=== PATIENT | female | born 1945 | race Caucasian/White ===

== ENCOUNTER → 2017-02-21 | Day surgery (SDC) | payer MEDICARE ==
[2017-02-16 14:41] VITALS: Ht 157.5 cm; Wt 59.1 kg
[~2017-02-21] VITALS: Ht 157.5 cm; Wt 59.1 kg
[~2017-02-21] MED LIST: ALBU1AER9 INH; ATROPINE SULFATE 0.1 MG/ML 5ML SYR IV PRN; ATROPINE SULFATE 1% OP SOLN 2 ML BTL ONE; BRIMONIDINE TART 0.2% OP SOLN PER DROP CHARGE ONE; CETI10TA84 PO; CHOL2000 PO; CLOP1TAB5 PO; DILT-113 PO; DVN80 PO; EpHEDrine SULFATE INJ 50 MG/ML AMP IV PRN; EpINEphrine INJ 1MG/ML AMP 1 MG/ML AMP ONE; LACTATED RINGER'S 1000ML 500 ML IV ONE; LIDOCAINE 3.5% OPH GEL PER APPLICATION CHARGE OPR SCH; LIDOCAINE 4% OP SOLN DROP CHARGE ONE; LIDOCAINE 4% OP SOLN DROP CHARGE OPR SCH; LIDOCAINE HCL 1% MPF 2 ML VIAL ONE; MIDAZOLAM HCL 1 MG/ML 2ML VIAL ONE; MOXIFLOXACIN OPH SOLN PER DROP CHARGE ONE; POVIDONE-IODINE OP SOLN 30 ML BTL ONE; PREMARIN PO; PROPARACAINE 0.5% OP SOLN PER DROP CHARGE OPR SCH; TIOT1AER INH; TOBRAMYCIN/DEXAMETHASONE OPH OINT PER APPLN CHARGE ONE
[2017-02-21] MEDS: MOXIFLOXACIN OPH SOLN PER DROP CHARGE OPR SCH ×3 (11:37→12:05)
--- NOTE | 2017-02-21 11:53 | History & Physical Bridge - [place] ---
H&P Re-Evaluation Bridge Note: I have examined the patient, reviewed the History & Physical and in the interval since the performance of the History & Physical I have noted the following changes of clinical significance: No changes noted
--- NOTE | 2017-02-21 12:47 | Discharge Instructions-SurgCtr ---
Discharge Instructions Date of Service Feb 21, 2017. 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 Post Anesthesia Instructions: If you have had General Anesthesia or IV Sedation: * Do not drive today. * Resume driving when surgeon permits. * Do not make important decisions or sign legal documents today. * Call surgeon for: 1. Temperature elevations greater than 101 degrees F. 2. Uncontrollable pain. 3. Excessive bleeding. 4. Persistent nausea and vomiting. 5. Medication intolerance (nausea, vomiting or rash). * For nausea and vomiting use only clear liquids such as: tea, soda, bouillon until nausea subsides, then gradually increase diet as tolerated. * If you have any concerns or questions, call your surgeon's office. If physician is unavailable and it is an emergency, call 911 or go to the nearest emergency room. . Instructions / Follow-Up Instructions / Follow-Up ACTIVITY RECOMMENDATIONS: * Light activities * You may walk outside, read, watch television. * Mild irritation and blurred vision are common for the first few days, redness around the white part of the eye is common. MEDICATIONS: Resume previous medications unless instructed otherwise by your surgeon. Eye drops (today and tomorrow): Gatifloxacin - one drop in operative eye every 2 hours while awake Prednisolone 1% - one drop in operative eye every 2 hours while awake SPECIAL CARE INSTRUCTIONS: * If any problems or concerns, please call Dr. Jaime's office at . FOLLOW UP VISIT: Follow-up with Dr. Jaime in the [place] office as scheduled. If not already scheduled, please call the office at . Diet Recommendations Home Diet: resume previous diet Procedures Procedures Performed: Right Eye Lamellar Keratectomy Pending Studies Studies pending at discharge: no Medical Emergencies . Who to Call and When: Medical Emergencies: If at any time you feel your situation is an emergency, please call 911 immediately. . Non-Emergent Contact Non-Emergency issues call your: Hand Nailer . . "Provider Documentation" section prepared by Gavin Jaime. .
--- NOTE | 2017-02-21 12:48 | [facility] Post Operative Brief Note ---
Immediate Operative Summary Operative Date Feb 21, 2017. 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 Jaime Political Research Scientist Surgeon(s) None Estimated Blood Loss 0 Findings elisa's nodular degeneration right eye Specimens 0 Complication(s) None Disposition Recovery Room / PACU
[2017-02-21 12:50] VITALS: TEMP 36.5
--- NOTE | 2017-02-21 13:01 | Anesthesia Progress Nt - [facility] ---
Anesthesia Post Op Note Date & Time Feb 21, 2017 at 13:01 Vital Signs Pain Intensity: 0 Vital Signs Past 12 Hours Date Time Temp Pulse Resp B/P (MAP) Pulse Ox O2 Delivery O2 Flow Rate FiO2 02/21/17 12:50 36.5 60 16 128/75 (92) 96 Room Air 02/21/17 11:25 36.8 57 16 145/67 (93) 96 Room Air Notes Mental Status: alert / awake / arousable, participated in evaluation Pt Amnestic to Procedure: Yes Nausea / Vomiting: adequately controlled Pain: adequately controlled Airway Patency, RR, SpO2: stable & adequate BP & HR: stable & adequate Hydration State: stable & adequate Anesthetic Complications: no major complications apparent
[2017-02-21 13:05] VITALS: BP 123/67; PULSE 62; O2SAT 94
--- NOTE | 2017-02-21 19:04 | OPERATIVE REPORT ---
DATE OF OPERATION: 02/21/2017 PREOPERATIVE DIAGNOSIS: Salzmann's nodular degeneration, right eye. POSTOPERATIVE DIAGNOSIS: Same. PROCEDURE PERFORMED: Lamellar keratectomy, right eye. COMPLICATIONS: None. ESTIMATED BLOOD LOSS: None. ANESTHESIA: Local with sedation. DESCRIPTION OF PROCEDURE: After informed consent was obtained in the holding area, the patient was taken back to the operating room where cardiac monitoring leads and oxygen by nasal cannula was administered by anesthesia. Gentle IV sedation was given and the patient's right eye was prepped and draped in the usual sterile fashion. A wire lid speculum was placed in the right eye and the operating microscope swung into position. Using 0.12 forceps and a [place] style blade, the Salzmann's nodule was reflected off of the superior aspect of the patient's right cornea as well as a little bit of inferiorly on the cornea. Once this was done, a bandage contact lens was placed on the eye. The wire lid speculum was removed from the eye. Vigamox and atropine were placed on the eye. The patient tolerated the procedure well and was taken to recovery area in stable condition. I attest to the content of the Intraoperative Record and any orders documented therein. Any exceptions are noted below. MTDD
== END | disposition home or self-care (01) ==
LOC: X.SURG 11:03
PROVIDERS: ATTEND Ophthalmology
DX: H18.451 Nodular corneal degeneration, right eye (principal); M19.90 Unspecified osteoarthritis, unspecified site; J45.909 Unspecified asthma, uncomplicated; I11.9 Hypertensive heart disease without heart failure